=== PATIENT | female | born 1940 | race Caucasian/White ===

== ENCOUNTER → 2019-06-24 13:09 | Outpatient (CLI) | payer MEDICARE, OTHER, SELFPAY ==
--- NOTE | ~2019-06-24 | XR_ITS ---
XR knee RT min 4V DATE: 06/24/2019 13:37 INDICATION: Right knee pain for several years. No recent injury. TECHNIQUE: 4 views including sunrise, standing AP, PA and lateral views COMPARISON: None FINDINGS: There is prominent loss of height of the medial compartment joint space, with mild periarti cular spurring. There is periarticular spurring at the patellofemoral and lateral compartments. Moderate osteopenia. There is distention of the suprapatellar bursa consistent with moderate knee joint effusion. No fracture, dislocation, periosteal reaction or bone destruction is detected. 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 IMPRESSION: Tricompartment osteoarthritis, most severe at the medial compartmen t Moderate right knee joint effusion
== END ==
PROVIDERS: Visit Provider Internal Medicine
DX: M25.461 Effusion, right knee (principal); M17.11 Unilateral primary osteoarthritis, right knee
CPT/HCPCS: 73564

== ENCOUNTER → 2022-01-17 14:15 | Outpatient (CLI) | payer MEDICARE, OTHER, SELFPAY ==
--- NOTE | ~2022-01-17 | US_ITS ---
EXAMINATION: US pelvic complete DATE: 01/17/2022 14:45 INDICATION: Pelvic pain. Left lower quadrant mass. Comparison:No prior studies for comparison. TECHNIQUE: Multiple transabdominal and endovaginal sonographic images of the pelvis performed. FINDINGS: The uterus measures 4.8 x 2.9 x 3.8 cm. There is a coarse calcification measuring 1.7 cm in the uterus, likely calcified fibroid. The endometrial complex measures 3 mm. The ovaries are not visualized. There is no free fluid in the pelvis. There are no abnormal masses seen on either side. IMPRESSION: 1. Probable 1.7 cm calcified uterine fibroid. Reviewed, dictated and finalized at location A.
== END ==
PROVIDERS: PCP Family Medicine; Visit Provider Obstetrics & Gynecology Gynecology
DX: R10.2 Pelvic and perineal pain (principal)
CPT/HCPCS: 76856

== ENCOUNTER → 2022-02-10 09:24 | Outpatient (CLI) | payer MEDICARE, OTHER, SELFPAY ==
--- NOTE | ~2022-02-10 | DEXA_ITS ---
Bone Density Report Name: JUAN RAMON HERNANDEZ Age: 81 Sex: Female Ethnicity: White Date of : 1940 Indication: postmenopausal; screening for osteoporosis; height loss; Referring Provider: ABBE ECKERT Study: Bone densitometry was performed. Exam Date: February 10, 2022 Accession number: [id number] Bone Density: Region BMD T-score Z-score Classification AP Spine (L1-L4) 0.898 -1.4 1.3 Osteopenia Femoral Neck (Left) 0.633 -1.9 0.4 Osteopenia Total Hip (Left) 0.769 -1.4 0.7 Osteopenia Femoral Neck (Right) 0.559 -2.6 -0.3 Osteoporosis Total Hip (Right) 0.718 -1.8 0.3 Osteopenia Total Hip Mean 0.744 -1.6 0.5 Osteopenia World Health Organization criteria for BMD impression classify patients as: Normal (T-score at or above -1.0), Osteopenia (T-score between -1.0 and -2.5), or Osteoporosis (T-score at or below -2.5). 10-year Fracture Risk: FRAX not reported because: Some T-score for Spine Total or Hip Total or Femoral Neck at or below -2.5 Clinical Information Provided by Patient: Has used the following medications: Vitamin D, Calcium Patient maximum height was 65 Menopause Age: 49 No regular weight bearing exercise Drinks caffeinated beverages Onset of menses at age 12 Number of children 2 Impression: The patient has osteoporosis, based on the Right Femoral Neck T-score. Discussion: INCREASED RISK OF FRACTURE. BONE DENSITY IS UNDESIRABLY LOW AT ONE OR MORE SKELETAL SITES, CONSISTENT WITH POSTMENOPAUSAL OSTEOPOROSIS. This patient's lowest T-score meets the World Health Organization's (WHO) criteria for osteoporosis at one or more sites (T-score -2.5 or below). In untreated patients, the risk of osteoporotic fracture increases approximately two-fold for each 1.0 SD decrease in T-score. Low bone density is not the only risk factor for fracture; also consider factors such as patient's age, frailty or poor health, risk of falling, risk of injury, previous osteoporotic fracture, family history of osteoporosis, cigarette smoking, low body weight, etc. Not everyone with low bone mineral density has osteoporosis; osteomalacia and other metabolic bone disorders should also be considered. Patients who have osteoporosis should be evaluated for specific diseases and conditions (secondary causes) that may cause or contribute to bone loss. The [place] Association of Clinical Endocrinologists (AACE) and National Osteoporosis Foundation (NOF) recommend pharmacologic intervention for all postmenopausal women whose T-score is in this range. The patient should follow a healthful lifestyle (good nutrition with adequate calcium and vitamin D, and appropriate weight-bearing exercise). Follow-Up: Consider a repeat BMD and Vertebral Fracture Assessment (VFA) exam in 2 years or sooner if medically necessary, to reassess t
== END ==
PROVIDERS: PCP Family Medicine; Visit Provider Obstetrics & Gynecology Gynecology
DX: Z78.0 Asymptomatic menopausal state (principal); M85.88 Other specified disorders of bone density and structure, other site; M85.852 Other specified disorders of bone density and structure, left thigh; M85.851 Other specified disorders of bone density and structure, right thigh; M81.0 Age-related osteoporosis without current pathological fracture
CPT/HCPCS: 77080

== ENCOUNTER 2022-09-19 13:33 | Outpatient (CLI) | payer MEDICARE, OTHER, SELFPAY ==
[2022-09-19 17:08] LABS: Cholesterol 149 mg/dL (0-200); HDL Direct 76 mg/dL; Triglycerides 66 mg/dL (<150)
[2022-09-19 17:20] LABS: LDL Cholesterol Direct 63 mg/dL
== END 2022-09-19 13:34 | disposition home or self-care (01) ==
LOC: ANHGOSHLAB 13:34
PROVIDERS: PCP Family Medicine; Visit Provider Family Medicine
DX: E78.5 Hyperlipidemia, unspecified (principal)
CPT/HCPCS: 36415; 80061

== ENCOUNTER 2024-04-17 13:17 | Outpatient (CLI) | payer MEDICARE, OTHER, SELFPAY ==
--- NOTE | ~2024-04-17 | DEXA_ITS ---
Bone Density Report Name: JUAN RAMON HERNANDEZ Age: 83 Sex: Female Ethnicity: White Date of : 1940 Indication: postmenopausal; screening for osteoporosis; parental hip fracture; height loss; Referring Provider: ABBE ECKERT Study: Bone densitometry was performed. Exam Date: April 17, 2024 Accession number: [id number] Bone Density: Region BMD T-score Z-score Classification AP Spine(L1-L4) 0.996 -0.5 2.3 Normal Femoral Neck (Left) 0.612 -2.1 0.3 Osteopenia Total Hip (Left) 0.811 -1.1 1.1 Osteopenia Femoral Neck (Right) 0.530 -2.9 -0.4 Osteoporosis Total Hip (Right) 0.752 -1.6 0.7 Osteopenia Total Hip Mean 0.781 -1.4 0.9 Osteopenia World Health Organization criteria for BMD impression classify patients as: Normal (T-score at or above -1.0), Osteopenia (T-score between -1.0 and -2.5), or Osteoporosis (T-score at or below -2.5). 10-year Fracture Risk: FRAX not reported because: Some T-score for Spine Total or Hip Total or Femoral Neck at or below -2.5 Clinical Information Provided by Patient: Parent has had a hip fracture Has used the following medications: Boniva (i.e. ibandronate), Vitamin D, Calcium Patient maximum height was 65 No regular weight bearing exercise Drinks caffeinated beverages Onset of menses at age 13 Number of children 2 Impression: The patient has osteoporosis, based on the Right Femoral Neck T-score. The patient has risk factors, including: parental hip fracture. Discussion: INCREASED RISK OF FRACTURE. BONE DENSITY IS UNDESIRABLY LOW AT ONE OR MORE SKELETAL SITES, CONSISTENT WITH POSTMENOPAUSAL OSTEOPOROSIS. This patient's lowest T-score meets the World Health Organization's (WHO) criteria for osteoporosis at one or more sites (T-score -2.5 or below). In untreated patients, the risk of osteoporotic fracture increases approximately two-fold for each 1.0 SD decrease in T-score. Low bone density is not the only risk factor for fracture; also consider factors such as patient's age, frailty or poor health, risk of falling, risk of injury, previous osteoporotic fracture, family history of osteoporosis, cigarette smoking, low body weight, etc. Not everyone with low bone mineral density has osteoporosis; osteomalacia and other metabolic bone disorders should also be considered. Patients who have osteoporosis should be evaluated for specific diseases and conditions (secondary causes) that may cause or contribute to bone loss. The [place] Association of Clinical Endocrinologists (AACE) and National Osteoporosis Foundation (NOF) recommend pharmacologic intervention for all postmenopausal women whose T-score is in this range. The patient should follow a healthful lifestyle (good nutrition with adequate calcium and vitamin D, and appropriate weight-bearing exercise). Follow-Up: Consider a repeat BMD and Vertebral Fracture Assessment (VFA) exam in 2 years or sooner if medically necessary, to reassess this patient's status. Reported by: SHAKEEL on 04/17/2024 1:59:00 PM. Reviewed, dictated and finalized at location A. JULIANA
== END 2024-04-17 13:18 | disposition home or self-care (01) ==
PROVIDERS: PCP Family Medicine; Visit Provider Obstetrics & Gynecology Gynecology
DX: Z78.0 Asymptomatic menopausal state (principal); M81.0 Age-related osteoporosis without current pathological fracture; M85.851 Other specified disorders of bone density and structure, right thigh
CPT/HCPCS: 77080

== ENCOUNTER 2024-04-17 14:32 | Outpatient (NON) | payer MEDICARE, OTHER, SELFPAY | END 2024-04-17 14:33 | disposition home or self-care (01) | LOC: ANHGOSHLAB 14:33 | PROVIDERS: PCP Family Medicine; Visit Provider Family Medicine | DX: R30.0 Dysuria (principal) | CPT/HCPCS: 87086 ==

== ENCOUNTER 2024-06-11 08:46 | Outpatient (CLI) | payer MEDICARE, OTHER, SELFPAY ==
--- OUTSIDE RECORDS SUMMARY | 2024-06-11 09:09 | XMS_ITS | Continuity of Care Document ---
Author Name [facility] Organization [facility] Care Team Providers Care Home Health Travel Pt Name Role Phone [facility] Unavailable Unavailable Medications Combined list of outpatient medications from Department of Defense and Veterans Affairs facilities.Medications provided include 1) outpatient medications from the last 15 months, and 2) patient-reported medications. Medication Details Route Status Patient Instructions Prescription Expires Prescription Number Last Dispense Date Ordering Provider Order Date Order Qty Source AMLODIPINE BESYLATE (AMLODIPINE BESYLATE), 5 MG, TABLET, ORAL, EXELAN PHARMACE, 1000 ea. BOTTLE Active [id number] 4 2023 90 Pharmac y Data Transac tion Service Facilit y AMLODIPINE BESYLATE (AMLODIPINE BESYLATE), 5 MG, TABLET, ORAL, EXELAN PHARMACE, 1000 ea. BOTTLE Active [id number] 4 2023 90 Pharmac y Data Transac tion Service Facilit y ATORVASTATI N CALCIUM (atorvastat in calcium), 20 MG, TABLET, ORAL, ROE PHARMACEU, 500 ea. BOTTLE Active [id number] 4 2023 90 Pharmac y Data Transac tion Service Facilit y LISINOPRIL (lisinopril ), 10 MG, TABLET, ORAL, EXELAN PHARMACE, 1000 ea. BOTTLE Active [id number] 4 2023 90 Pharmac y Data Transac tion Service Facilit y LISINOPRIL (lisinopril ), 10 MG, TABLET, ORAL, EXELAN PHARMACE, 1000 ea. BOTTLE Active [id number] 4 2023 90 Pharmac y Data Transac tion Service Facilit y METHYLPREDN ISOLONE (methylpred nisolone), 4 MG, TAB DS PK, ORAL, Propers, 21 ea. DOSE-PACK Active [id number] 4 2023 21 Pharmac y Data Transac tion Service Facilit y PANTOPRAZOL E SODIUM (pantoprazo le sodium), 20 MG, TABLET DR, EVI, [employer] 90 ea. BOTTLE Active [id number] 4 2023 180 Pharmac y Data Transac tion Service Facilit y PANTOPRAZOL E SODIUM (pantoprazo le sodium), 20 MG, TABLET , ORAL, [employer] 90 ea. BOTTLE Active [id number] 4 2023 180 Pharmac y Data Transac tion Service Facilit y Immunizations Combined list of available immunizations from the Department of Defense and Veterans Affairs facilities. Immunization Series Date Given Administered By Site Reaction Lot Number CVX Code Drug Analytic Programmer Status Comments Source Hep B, adult 2021 ALUL, () Not Given Hep B, adult DoD Hep B, adult 2021 ALUL, () Not Given Hep B, adult DoD Social History Combined list of available smoking, tobacco, and other social history from Department of Defense and Veterans Affairs facilities. Social History Type Response Date Comment Sour e This section is an empty social history section. DoD
--- OUTSIDE RECORDS SUMMARY | 2024-06-11 09:09 | XMS_ITS | Clinical Summary ---
Author Organization [place] [id number] [facility] Address [address] [place] [address] Care Team Providers Care Seed Service Advisor Name Role Phone Paola Banks MD Unavailable [phone] Leanne Espinosa MD Primary Care Provider Allergies No known active allergies Medications pantoprazole (PROTONIX) 40 mg EC tabletIndications :Treatment of Non-Bleeding Gastric Disorder Take 1 tablet (40 mg total) by mouth web site administrator before breakfast 9 Active calcium carbonate (CALCIUM 600 ORAL)Indications: supplement Take 1 tablet by mouth web site administrator before breakfast Bid Active vitamin E 400 unit capsuleIndication s:supplement Take 1 capsule (400 Units total) by mouth web site administrator before breakfast Active ascorbic acid (VITAMIN C) 500 mg tablet,chewableIn dications:supplem ent Take 1 tablet/chew tab (500 mg total) by mouth web site administrator before breakfast qd Active cholecalciferol, vitamin D3, (VITAMIN D3 ORAL)Indications: supplement Take 1 tablet by mouth web site administrator before breakfast 1000mg bid Active vit A/vit C/vit E/zinc/copper (ICAPS AREDS ORAL)Indications: eye vitamin Take 1 tablet/capsule by mouth 2 (two) times a day Unsure med dosage bid Active multivitamin capsuleIndication s:Vitamin Deficiency Prevention Take 1 capsule by mouth web site administrator before breakfast Active flaxseed oil 1,000 mg capsuleIndication s:supplement Take 1 capsule (1,000 mg total) by mouth web site administrator before breakfast qd Active gluc/chondr-msm 7/C/miguel/boron (GLUCOSAMINE-SHELDON , LIO, ORAL)Indications: supplement Take 1 tablet by mouth web site administrator before breakfast 1500mg/1200mg every day Active LUTEIN ORALIndications:s upplement Take 1 capsule by mouth nightly Unsure med dosage every day Active MAGNESIUM ORALIndications:s upplement Take 1 tablet by mouth nightly Unsure med dosage every day Active polyethylene glycol (MIRALAX) 17 gram/dose powderIndications :constipation Take 17 g by mouth nightly Active lisinopriL (PRINIVIL,ZESTRIL ) 10 mg tabletIndications :hypertension Take 1 tablet (10 mg total) by mouth web site administrator before breakfast 2 Active ibandronate (BONIVA) 150 mg tabletIndications :Post-Menopausal Osteoporosis Prevention,Sunday of each month Take 1 tablet (150 mg total) by mouth every 30 (thirty) days 3 Active atorvastatin (LIPITOR) 20 mg tabletIndications :hyperlipidemia Take 1 tablet (20 mg total) by mouth nightly 4 Active amLODIPine (NORVASC) 5 mg tabletIndications :hypertension Take 1 tablet (5 mg total) by mouth web site administrator before breakfast 4 Active cyanocobalamin/fo lic acid (vitamin C77-xglrz acid) 500-400 mcg tabletIndications :Vitamin Deficiency Prevention Take 1 tablet/capsule by mouth 4 (four) times a week Active acetaminophen (TYLENOL) 500 mg tablet Take 2 tablets (1,000 mg total) by mouth every 6 (six) hours as needed for pain 30 tablet 4 Active oxyCODONE (ROXICODONE) 5 mg immediate release tabletIndications :Pain Take 1 tablet (5 mg total) by mouth every 4 (four) hours as needed for pain 2 tablet 4 Active Active Problems Problem Noted Date Diagnosed Date Non-recurrent unilateral ing uinal hernia without obstruction or gangrene 09/21/2023 Encounters Date Type Department Care Team Description 05/29/2024 11:02 AM TAPE RECORDER REPAIRER - 05/29/2024 11:59 PM TAPE RECORDER REPAIRER Hospital Encounter [facility] [address] [id number] Screening mammogram, encounter for Discharge Disposition: Discharge to home or self care from Last 3 Months Immunizations Immunization Administration Dates Next Due Hep B Vaccine 01/14/2021,08/16/2020,07/15/2020 Pfizer SARS-CoV-2 Monovalent Vaccination (12+ Yrs) PURPLE 06/29/2020,06/08/2020 Surgical History Surgery Date Site/Laterality Comments PANCREATICODUODENECTOMY 04/09/2007 - 04/08/2008 CHOLECYSTECTOMY 04/09/1994 - 04/08/1995 APPENDECTOMY 04/09/1981 - 04/08/1982 HIATAL HERNIA REPAIR 04/09/2009 - 04/08/2010 SALIVARY GLAND SURGERY neck/unknown date ARM SURGERY teenager TUBAL LIGATION COLONOSCOPY REPLACEMENT UNICONDYLAR JOINT KNEE Right Medical History Medical History Date Comments Benign pancreatic tumor Hypertension Hyperlipidemia GERD (gastroesophageal reflux disease) Inguinal hernia Family History Medical History Relation Name Comments Heart attack Brother Non-Hodgkin's Lymphoma Brother Cancer Father No Known Problems Mother Anesthesia problems Neg Hx Relation Name Status Comments Brother [place] age 60s Father Mother Social History Tobacco Use Types Packs/Day Years Used Date Smoking Tobacco: Former Smokeless Tobacco: Never Tobacco Cessation:Counseling Given: Not Answered AUDIT-C Answer Date Recorded Q1: How often do you have a drink containing alc ohol? Monthly or less 10/10/2023 Q2: How many drinks containi ng alcohol do you have on a typical day when you are drinking? 1 or 2 10/10/2023 Q3: How often do you have si x or more drinks on one occasion? Never 10/10/2023 Personal Safety Answer Date Recorded Have you ever been in or are you currently in a harmful physical or emotional relationship or is someone making you feel afraid or unsafe? Denies 10/10/2023 Comments No Sex and Gender Information Value Date Recorded Sex Assigned at Not on file Legal Sex Female 2:59 AM TAPE RECORDER REPAIRER Gender Identity Not on file Sexual Orientation Not on file Obstetrics History Last Filed Vital Signs Vital Sign Reading Time Taken Comments Blood Pressure 144/79 11/02/2023 1:32 PM CDT Pulse 80 11/02/2023 1:32 PM CDT Temperature 36.2 C (97.2 F) 11/02/2023 1:32 PM CDT Respiratory Rate 12 10/10/2023 1:40 PM CDT Oxygen Saturation 96% 11/02/2023 1:32 PM CDT Inhaled Oxygen Concentration - - Weight 69.4 kg (153 lb) 11/02/2023 1:32 PM CDT Height 160 cm (5' 3 ) 11/02/2023 1:32 PM CDT Body Mass Index 27.1 11/02/2023 1:32 PM CDT Plan of Treatment Health Maintenance Due Date Last Done Comments Depression Screening 1940 Osteoporosis Screening-Bone Density Scan 1940 DTaP/Tdap/Td Vaccine (1 - Tdap) 1952 Pneumococcal vaccine 65+ (1 of 1 - PCV) 07/31/1991 Zoster Vaccine (1 of 2) 07/31/1991 Well Visit 65+ 2006 Covid-19 Vaccine ( season) 2023, 06/08/2020 Influenza Vaccine (#1) 2023 01/29/2020 Fall Risk Assessment 10/09/2024 10/10/2023 Hepatitis B Screening Completed 01/14/2021 , 08/16/2020, 07/15/2020 Medical Devices Implanted Type Area Band Teacher Device Identifier Shelf Expiration Date Model / Serial / Lot [employer] Surgery Ultrapro Advanced 15x7.6cm Partial Absorbable Lightweight [id number] - Sna - [id number] Implanted:Qty: 1 on 10/10/2023 by Crystal Raza MD at [facility] Mesh Left: Groin [employer] Surgery [id number] 04/08/2025 [id number] / NA / [id number] Procedures Procedure Name Priority Date/Time Associated Diagnosis Comments SCREENING MAMMOGRAM BILATERAL W YASEMIN Schedule Routine, Read Routine (OP Routine) 05/29/2024 11:16 AM TAPE RECORDER REPAIRER Screening mammogram, encounter for from Last 3 Months Results * Screening Mammogram Bilateral W Yasemin (05/29/2024 11:16 AM TAPE RECORDER REPAIRER) Anatomical Region Laterality Modality Breast Bilateral Mammography Narrative 05/29/2024 2:06 PM TAPE RECORDER REPAIRER Mammogram Technique: Bilateral Digital Breast Tomosynthesis, Bilateral C-view 2D Screening mammogram. Views obtained: bilateral craniocaudal and bilateral mediolateral oblique. Computer Aided Detection was performed. Mammogram Findings: The present examination has been compared to prior imaging studies performed at [facility] on 06/12/2023, and at [facility] on 05/26/2022 and 05/28/2023. There are scattered areas of fibroglandular density. There is no suspicious abnormality in either breast. Impression: There is no mammographic evidence of malignancy. As this patient is over 80 years of age, further mammographic screening can be obtained as clinically indicated. OVERALL FINAL ASSESSMENT: BI-RADS CATEGORY 1: Negative. Procedure Note China Sharma MD - 05/29/2024 Mammogram Technique: Bilateral Digital Breast Tomosynthesis, Bilateral C-view 2D Screening mammogram. Views obtained: bilateral craniocaudal and bilateral mediolateral oblique. Computer Aided Detection was performed. Mammogram Findings: The present examination has been compared to prior imaging studies performed at [facility] on 06/12/2023, and at [facility] on 05/26/2022 and 05/28/2023. There are scattered areas of fibroglandular density. There is no suspicious abnormality in either breast. Impression: There is no mammographic evidence of malignancy. As this patient is over 80 years of age, further mammographic screeningcan be obtained as clinically indicated. OVERALL FINAL ASSESSMENT: BI-RADS CATEGORY 1: Negative. us Self Screening Mammogram IMG MAMMO PROCEDURES Fi nal Result from Last 3 Months Insurance MEDICARE FOR LIFE MEDICARE FOR LIFE MEDICARE FOR LIFE Care Teams Seed Service Advisor Relationship Specialty Start Date End Date Leanne Espinosa MD [address] [facility] [address] [address] PCP - General Family Practice 05/05/24 Paola Banks MD [address] [place] [address] Referring Physician Gastroenterology 10/04/23
--- OUTSIDE RECORDS SUMMARY | 2024-06-11 09:09 | XMS_ITS | Referral Summary ---
Author Organization [place] [id number] [facility] Address [address] [place] [address] Care Team Providers Care Customer Relations Specialist Name Role Phone Paola Banks MD Unavailable [phone] Leanne Espinosa MD Primary Care Provider Encounters Date Type Department Care Team Description 05/29/2024 11:02 AM LUMP RECEIVER - 05/29/2024 11:59 PM [facility] Hospital Encounter [facility] [address] [facility] [address] [place] [address] Screening mammogram, encounter for Discharge Disposition: Discharge to home or self care from Last 3 Months Allergies No known active allergies Medications pantoprazole DR (PROTONIX) 40 mg EC tabletIndications :Treatment of Non-Bleeding Gastric Disorder Take 1 tablet (40 mg total) by mouth casting trucker before breakfast 9 Active calcium carbonate (CALCIUM 600 ORAL)Indications: supplement Take 1 tablet by mouth casting trucker before breakfast Bid Active vitamin E 400 unit capsuleIndication s:supplement Take 1 capsule (400 Units total) by mouth casting trucker before breakfast Active ascorbic acid (VITAMIN C) 500 mg tablet,chewableIn dications:supplem ent Take 1 tablet/chew tab (500 mg total) by mouth casting trucker before breakfast qd Active cholecalciferol, vitamin D3, (VITAMIN D3 ORAL)Indications: supplement Take 1 tablet by mouth casting trucker before breakfast 1000mg bid Active vit A/vit C/vit E/zinc/copper (ICAPS AREDS ORAL)Indications: eye vitamin Take 1 tablet/capsule by mouth 2 (two) times a day Unsure med dosage bid Active multivitamin capsuleIndication s:Vitamin Deficiency Prevention Take 1 capsule by mouth casting trucker before breakfast Active flaxseed oil 1,000 mg capsuleIndication s:supplement Take 1 capsule (1,000 mg total) by mouth casting trucker before breakfast qd Active gluc/chondr-msm 7/C/miguel/boron (GLUCOSAMINE-SHELDON , BOSWELLIA, ORAL)Indications: supplement Take 1 tablet by mouth casting trucker before breakfast 1500mg/1200mg every day Active LUTEIN [...] 1 tablet (10 mg total) by mouth casting trucker before breakfast 2 Active ibandronate (BONIVA) 150 mg tabletIndications :Post-Menopausal Osteoporosis Prevention,Sunday of each month Take 1 tablet (150 mg total) by mouth every 30 (thirty) days 3 Active atorvastatin (LIPITOR) 20 mg tabletIndications :hyperlipidemia Take 1 tablet (20 mg total) by mouth nightly 4 Active amLODIPine (NORVASC) 5 mg tabletIndications :hypertension Take 1 tablet (5 mg total) by mouth casting trucker before breakfast 4 Active cyanocobalamin/fo lic acid (vitamin C99-lmhoc acid) 500-400 mcg tabletIndications :Vitamin Deficiency Prevention [...] uinal hernia without obstruction or gangrene 09/21/2023 Immunizations Immunization Administration Dates Next Due Hep B Vaccine 01/14/2021,08/16/2020,07/15/2020 Pfizer SARS-CoV-2 Monovalent Vaccination (12+ Yrs) PURPLE 06/29/2020,06/08/2020 Social History Tobacco Use Types Packs/Day Years [...] on file Legal Sex Female 2:59 AM LUMP RECEIVER Gender Identity Not on file Sexual Orientation Not on file Last Filed Vital Signs Vital Sign Reading [...] 11/02/2023 1:32 PM CDT Plan of Treatment Not on file Medical Devices Implanted Type Area Poultry Tender Device Identifier Shelf Expiration Date Model / Serial / Lot Ethicon Endo Surgery Ultrapro Advanced 15x7.6cm Partial Absorbable Lightweight [id number] - Sna - [id number] Implanted:Qty: 1 on 10/10/2023 by Crystal Raza MD at [facility] Mesh Left: Groin Ethicon Endo Surgery [id number] 04/08/2025 [id number] / NA / [id number] Procedures Procedure Name Priority Date/Time Associated Diagnosis Comments SCREENING MAMMOGRAM BILATERAL W YASEMIN Schedule Routine, Read Routine (OP Routine) 05/29/2024 11:16 AM LUMP RECEIVER Screening mammogram, encounter for from Last 3 Months Results * Screening Mammogram Bilateral W Yasemin (05/29/2024 11:16 AM LUMP RECEIVER) Anatomical Region Laterality Modality Breast Bilateral Mammography Narrative 05/29/2024 2:06 PM LUMP RECEIVER Mammogram Technique: Bilateral Digital Breast Tomosynthesis, Bilateral C-view 2D Screening mammogram. Views obtained: bilateral craniocaudal and bilateral mediolateral oblique. Computer Aided Detection was performed. Mammogram Findings: The present examination has been compared to prior imaging studies performed at [facility] on 06/12/2023, and at [facility] on 05/26/2022 and 05/28/2023. There are scattered [...] compared to prior imaging studies performed at [facility] on 06/12/2023, and at [facility] on 05/26/2022 and 05/28/2023. There are scattered [...] Result from Last 3 Months Insurance MEDICARE [employer] MEDICARE [employer] FOR LIFE MEDICARE [facility] Address: [address] [address] [place] [address] FOR LIFE Care Teams Customer Relations Specialist Relationship Specialty Start Date End Date Leanne Espinosa MD [address] [facility] [address] [address] PCP - General Family Practice 05/05/24 Paola Banks MD [address] [place] [address] Referring Physician Gastroenterology 10/04/23
[2024-06-11 13:00] LABS: Alanine Aminotransferase 60 U/L (6-35); Albumin Level 4.4 g/dL (3.5-5.1); Alkaline Phosphatase 80 U/L (38-126); Anion Gap 9 mmol/L (4-12); Aspartate Amino Transferase 78 U/L (14-36); Bilirubin,Total 0.7 mg/dL (0.2-1.3); Blood Urea Nitrogen 14 mg/dL (7-17); Calcium 9.6 mg/dL (8.4-10.2); Carbon Dioxide 28 mmol/L (22-30); Chloride 103 mmol/L (98-107); Cholesterol 159 mg/dL (0-200); Estimated Glomerular Filt Rate > 60; Glucose 96 mg/dL (65-110); HDL Direct 95 mg/dL; Potassium 4.5 mmol/L (3.4-5.0); Sodium 140 mmol/L (137-145); Triglycerides 54 mg/dL (<150)
[2024-06-11 13:03] LABS: Basophils Absolute Auto 0.1 K/mm3 (0.0-0.1); Basophils Percent Auto 1.2 % (0.2-1.2); Eosinophils Absolute Auto 0.5 K/mm3 (0-0.3); Eosinophils Percent Auto 9.1 % (0-4.4); Hematocrit 41.7 % (37.0-47.0); Hemoglobin 13.3 g/dL (12.0-15.0); Immature Granulocyte Absolute 0.02 K/mm3 (0.00-0.031); Immature Granulocyte Percent A 0.4 % (0-0.5); Lymphocytes Absolute Auto 1.42 K/mm3 (0.9-3.2); Mean Corpuscular HGB Conc 31.9 g/dl (32-36); Mean Corpuscular Hemoglobin 33.3 pg (26-34); Mean Corpuscular Volume 104.3 fl (80-100); Monocytes Absolute Auto 0.5 K/mm3 (0.1-0.6); Monocytes Percent Auto 9.3 % (2.6-8.5); Neutrophils Absolute Auto 2.7 K/mm3 (1.3-6.7); Platelet Count Result 197 k/mm3 (150-375); White Blood Count 5.1 K/mm3 (4.5-10.0)
[2024-06-11 13:13] LABS: LDL Cholesterol Direct 51 mg/dL
[2024-06-11 14:20] LABS: Hemoglobin A1C 5.3 % (<5.7); Vitamin D 25 Hydroxy 73.6 ng/mL
== END 2024-06-11 08:47 | disposition home or self-care (01) ==
PROVIDERS: PCP Family Medicine; Visit Provider Family Medicine
DX: R73.9 Hyperglycemia, unspecified (principal); E55.9 Vitamin D deficiency, unspecified; E53.8 Deficiency of other specified B group vitamins; I10 Essential (primary) hypertension; E78.5 Hyperlipidemia, unspecified
CPT/HCPCS: 36415; 80053; 80061; 82306; 82607; 83036; 84443; 85025

== ENCOUNTER 2024-07-23 12:32 | Outpatient (CLI) | payer MEDICARE, OTHER, SELFPAY ==
--- OUTSIDE RECORDS SUMMARY | 2024-07-23 13:35 | XMS_ITS | Encounter Summary ---
Author Organization [facility] Address [address] [place] [address] Phone Care Team Providers Care Community Living Specialist Name Role Phone Paola Banks MD Unavailable [phone] Leanne Espinosa MD Primary Care Provider Encounter Details Date Type Department Care Team (Late st Contact Info) Description 07/15/2024 Results Follow-Up [facility] Gastroenterology [address] [facility] Medicine 12th [place] [address] [place] [id number] Paola Banks MD [address] [place] [address] Social History Tobacco Use Types Packs/Day Years Used Date Smoking Tobacco: Former Smokeless Tobacco: Never AUDIT-C Answer Date Recorded Q1: How often [...] on file Legal Sex Female 2:59 AM TOP CLEANER Gender Identity Not on file Sexual Orientation Not on file documented as of this encounter Plan of Treatment Not on file documented as of this encounter Visit Diagnoses Not on filedocumented in this encounter Care Teams Community Living Specialist Relationship Specialty Start Date End Date Leanne Espinosa MD [address] [facility] [address] [place] [address] [place] [address] PCP - General Family Practice 05/05/24 Paola Banks MD [address] [place] [address] Referring Physician Gastroenterology 10/04/23 documented as of this encounter
--- OUTSIDE RECORDS SUMMARY | 2024-07-23 13:35 | XMS_ITS | Clinical Summary ---
Author Organization [place] [address] [facility] Address [address] [place] [address] Care Team Providers Care Director Of Strategic Programs Name Role Phone Paola Banks MD Unavailable [phone]- [phone] Leanne Espinosa MD Primary Care Provider Allergies No known active allergies Medications pantoprazole (PROTONIX) 40 mg EC tabletIndications :Treatment of Non-Bleeding Gastric Disorder Take 1 tablet (40 mg total) by mouth shrub planter before breakfast 9 Active calcium carbonate (CALCIUM 600 ORAL)Indications: supplement Take 1 tablet by mouth shrub planter before breakfast Bid Active vitamin E 400 unit capsuleIndication s:supplement Take 1 capsule (400 Units total) by mouth shrub planter before breakfast Active ascorbic acid (VITAMIN C) 500 mg tablet,chewableIn dications:supplem ent Take 1 tablet/chew tab (500 mg total) by mouth shrub planter before breakfast qd Active cholecalciferol, vitamin D3, (VITAMIN D3 ORAL)Indications: supplement Take 1 tablet by mouth shrub planter before breakfast 1000mg bid Active vit A/vit C/vit E/zinc/copper (ICAPS AREDS ORAL)Indications: eye vitamin Take 1 tablet/capsule by mouth 2 (two) times a day Unsure med dosage bid Active multivitamin capsuleIndication s:Vitamin Deficiency Prevention Take 1 capsule by mouth shrub planter before breakfast Active flaxseed oil 1,000 mg capsuleIndication s:supplement Take 1 capsule (1,000 mg total) by mouth shrub planter before breakfast qd Active gluc/chondr-msm 7/C/miguel/boron (GLUCOSAMINE-SHELDON , LIO, ORAL)Indications: supplement Take 1 tablet by mouth shrub planter before breakfast 1500mg/1200mg every day Active LUTEIN [...] 1 tablet (10 mg total) by mouth shrub planter before breakfast 2 Active ibandronate (BONIVA) 150 mg tabletIndications :Post-Menopausal Osteoporosis Prevention,Sunday of each month Take 1 tablet (150 mg total) by mouth every 30 (thirty) days 3 Active atorvastatin (LIPITOR) 20 mg tabletIndications :hyperlipidemia Take 1 tablet (20 mg total) by mouth nightly 4 Active amLODIPine (NORVASC) 5 mg tabletIndications :hypertension Take 1 tablet (5 mg total) by mouth shrub planter before breakfast 4 Active cyanocobalamin/fo lic acid (vitamin O50-kndwo acid) 500-400 mcg tabletIndications :Vitamin Deficiency Prevention [...] needed for pain 2 tablet 4 Active denosumab (PROLIA) 60 mg/mL syringe Inject under the skin once Active Active Problems Problem Noted Date Diagnosed Date Non-recurrent unilateral ing uinal hernia without obstruction or gangrene 09/21/2023 Encounters Date Type Department Care Team Description 07/15/2024 Results Follow-Up [facility] Gastroenterology [address] [facility] [address]th [place] [address] [place] [address] Paola Banks MD 07/10/2024 10:45 AM CDT Procedure visit [facility] Gastroenterology [address] [facility] [address]th [place] [address] [place] [address] Nonalcoholic steatohepatitis (BEAL) 07/10/2024 10:20 AM CDT Office Visit [facility] Gastroenterology [address] [facility] [address]th [place] [address] [place] [address] Paola Banks MD Nonalcoholic steatohepatitis (BEAL) (Primary Dx) 05/29/2024 11:02 AM COMPUTER LANGUAGE CODER - 05/29/2024 11:59 PM COMPUTER LANGUAGE CODER Hospital Encounter [facility] [address] [facility] [address] [place] [address] Screening mammogram, encounter for Discharge Disposition: Discharge [...] neck/unknown date ARM SURGERY teenager TUBAL LIGATION 1980s COLONOSCOPY REPLACEMENT UNICONDYLAR JOINT KNEE Right Medical History Medical History Date Comments Benign pancreatic tumor Hypertension Hyperlipidemia GERD (gastroesophageal reflux disease) Inguinal hernia Family History Medical History Relation Name Comments Heart attack Brother Non-Hodgkin's Lymphoma Brother Cancer Father No Known Problems Mother Anesthesia problems Neg Hx Relation Name Status Comments Brother [place] age 60s Father Mother Social History Tobacco [...] on file Legal Sex Female 2:59 AM COMPUTER LANGUAGE CODER Gender Identity Not on file Sexual Orientation Not on file Obstetrics History Last Filed Vital Signs Vital Sign Reading Time Taken Comments Blood Pressure 150/89 07/10/2024 10:15 AM CDT Pulse 68 07/10/2024 10:15 AM CDT Temperature 36.7 C (98 F) 07/10/2024 10:15 AM CDT Respiratory Rate 12 10/10/2023 1:40 PM CDT Oxygen Saturation 100% 07/10/2024 10:15 AM CDT Inhaled Oxygen Concentration - - Weight 68.5 kg (151 lb) 07/10/2024 10:15 AM CDT Height 160 cm (5' 3 ) 07/10/2024 10:15 AM CDT Body Mass Index 26.75 07/10/2024 10:15 AM CDT Plan of Treatment Health Maintenance Due Date Last Done Comments Depression Screening 1940 Osteoporosis Screening-Bone Density Scan 1941 DTaP/Tdap/Td Vaccine (1 - Tdap) 1952 Pneumococcal vaccine 65+ (1 of 1 - PCV) 07/31/1991 Zoster Vaccine (1 of 2) 07/31/1991 Well Visit 65+ 2006 Covid-19 Vaccine ( - season) 2023, 06/08/2020 Fall Risk Assessment 10/09/2024 10/10/2023 Influenza Vaccine (Season Ended) 2024 01/29/20 Hepatitis B Screening Completed 01/14/2021 , 08/16/2020, 07/15/2020 Medical Devices Implanted Type Area Horticultural Agent Device Identifier Shelf Expiration Date Model / Serial / Lot Ethicon Endo Surgery Ultrapro Advanced 15x7.6cm Partial Absorbable Lightweight [id number] - Sna - [id number] Implanted:Qty: 1 on 10/10/2023 by Crystal Raza MD at [facility] Mesh Left: Groin Ethicon Endo Surgery [id number] 04/08/2025 [id number] / NA / [id number] Procedures Procedure Name Priority Date/Time Associated Diagnosis Comments LIVER ELASTOGRAPHY W/O IMAGING W/I&R Routine 07/10/2024 11:46 AM CDT Nonalcoholic steatohepatitis (BEAL) SCREENING MAMMOGRAM BILATERAL W YASEMIN Schedule Routine, Read Routine (OP Routine) 05/29/2024 11:16 AM COMPUTER LANGUAGE CODER Screening mammogram, encounter for from Last 3 Months Results * Liver Elastography w/o Imaging W/I&R -[facility] (All Locations) (07/10/2024 11:46 AM CDT) Anatomical Region Laterality Modality Other Paola Banks MD GI PROCEDURE ORDERAB LES Final Result * Screening Mammogram Bilateral W Yasemin (05/29/2024 11:16 AM COMPUTER LANGUAGE CODER) Anatomical Region Laterality Modality Breast Bilateral Mammography Narrative 05/29/2024 2:06 PM COMPUTER LANGUAGE CODER Mammogram Technique: Bilateral Digital Breast Tomosynthesis, Bilateral C-view 2D Screening mammogram. Views obtained: bilateral craniocaudal and bilateral mediolateral oblique. Computer Aided Detection was performed. Mammogram Findings: The present examination has been compared to prior imaging studies performed at [facility] on 06/12/2023, and at [facility] on 05/26/2022 and 05/28/2023. There are [...] compared to prior imaging studies performed at [facility] on 06/12/2023, and at [facility] on 05/26/2022 and 05/28/2023. There are [...] Result from Last 3 Months Insurance MEDICARE HIGH MOBILITY MEDICARE FOR LIFE MEDICARE FOR LIFE Care Teams Director Of Strategic Programs Relationship Specialty Start Date End Date Leanne Espinosa MD [address] [facility] [address] [address] PCP - General Family Practice 05/05/24 Paola Banks MD [address] [place] [address] Referring Physician Gastroenterology 10/04/23
--- OUTSIDE RECORDS SUMMARY | 2024-07-23 13:35 | XMS_ITS | Referral Summary ---
Author Organization [place] [address] [facility] Address [address] [place] [address] Care Team Providers Care Miner Pick Name Role Phone Paola Banks MD Unavailable [phone] Leanne Espinosa MD Primary Care Provider Encounters Date Type Department Care Team Description 07/15/2024 Results Follow-Up [facility] Gastroenterology [facility] [address] [place] [address] [place] [address] Paola Banks MD 07/10/2024 10:45 AM CDT Procedure visit [facility] Gastroenterology [address] [place] [address] [place] [address] [place] [address] Nonalcoholic steatohepatitis (BEAL) 07/10/2024 10:20 AM CDT Office Visit [facility] Gastroenterology [address] [place] [address] [place] [address] [place] [address] Paola Banks MD Nonalcoholic steatohepatitis (BEAL) (Primary Dx) 05/29/2024 11:02 AM TRANSIT OPERATOR - 05/29/2024 11:59 PM TRANSIT OPERATOR Hospital Encounter [facility] [address] [facility] [address] [place] [address] Screening mammogram, encounter for Discharge Disposition: Discharge to home or self care from Last 3 Months Allergies No known active allergies Medications pantoprazole DR (PROTONIX) 40 mg EC tabletIndications :Treatment of Non-Bleeding Gastric Disorder Take 1 tablet (40 mg total) by mouth director payer before breakfast 9 Active calcium carbonate (CALCIUM 600 ORAL)Indications: supplement Take 1 tablet by mouth director payer before breakfast Bid Active vitamin E 400 unit capsuleIndication s:supplement Take 1 capsule (400 Units total) by mouth director payer before breakfast Active ascorbic acid (VITAMIN C) 500 mg tablet,chewableIn dications:supplem ent Take 1 tablet/chew tab (500 mg total) by mouth director payer before breakfast qd Active cholecalciferol, vitamin D3, (VITAMIN D3 ORAL)Indications: supplement Take 1 tablet by mouth director payer before breakfast 1000mg bid Active vit A/vit C/vit E/zinc/copper (ICAPS AREDS ORAL)Indications: eye vitamin Take 1 tablet/capsule by mouth 2 (two) times a day Unsure med dosage bid Active multivitamin capsuleIndication s:Vitamin Deficiency Prevention Take 1 capsule by mouth director payer before breakfast Active flaxseed oil 1,000 mg capsuleIndication s:supplement Take 1 capsule (1,000 mg total) by mouth director payer before breakfast qd Active gluc/chondr-msm 7/C/miguel/boron (GLUCOSAMINE-SHELDON , BOSWELLIA, ORAL)Indications: supplement Take 1 tablet by mouth director payer before breakfast 1500mg/1200mg every day Active LUTEIN [...] 1 tablet (10 mg total) by mouth director payer before breakfast 2 Active ibandronate (BONIVA) 150 mg tabletIndications :Post-Menopausal Osteoporosis Prevention,Sunday of each month Take 1 tablet (150 mg total) by mouth every 30 (thirty) days 3 Active atorvastatin (LIPITOR) 20 mg tabletIndications :hyperlipidemia Take 1 tablet (20 mg total) by mouth nightly 4 Active amLODIPine (NORVASC) 5 mg tabletIndications :hypertension Take 1 tablet (5 mg total) by mouth director payer before breakfast 4 Active cyanocobalamin/fo lic acid (vitamin U20-zners acid) 500-400 mcg tabletIndications :Vitamin Deficiency Prevention [...] on file Legal Sex Female 2:59 AM TRANSIT OPERATOR Gender Identity Not on file Sexual Orientation [...] 07/10/2024 10:15 AM CDT Plan of Treatment Not on file Medical Devices Implanted Type Area Production Operations Engineer Device Identifier Shelf Expiration Date Model / Serial / Lot Ethicon Endo Surgery Ultrapro Advanced 15x7.6cm Partial Absorbable Lightweight [id number] - Sna - [id number] Implanted:Qty: 1 on 10/10/2023 by Crystal Raza MD at [facility] Medicine Mesh Left: Groin Ethicon Endo Surgery [id number] 04/08/2025 [id number] / NA / [id number] Procedures Procedure Name Priority Date/Time Associated Diagnosis Comments LIVER ELASTOGRAPHY W/O IMAGING W/I&R Routine 07/10/2024 11:46 AM CDT Nonalcoholic steatohepatitis (BEAL) SCREENING MAMMOGRAM BILATERAL W YASEMIN Schedule Routine, Read Routine (OP Routine) 05/29/2024 11:16 AM TRANSIT OPERATOR Screening mammogram, encounter for from Last 3 Months Results * Liver Elastography w/o Imaging W/I&R -[facility] (All Locations) (07/10/2024 11:46 AM CDT) Anatomical Region Laterality Modality Other us Paola Banks MD GI PROCEDURE ORDERAB LES Final Result * Screening Mammogram Bilateral W Yasemin (05/29/2024 11:16 AM TRANSIT OPERATOR) Anatomical Region Laterality Modality Breast Bilateral Mammography Narrative 05/29/2024 2:06 PM TRANSIT OPERATOR Mammogram Technique: Bilateral Digital Breast Tomosynthesis, Bilateral C-view 2D Screening mammogram. Views obtained: bilateral craniocaudal and bilateral mediolateral oblique. Computer Aided Detection was performed. Mammogram Findings: The present examination has been compared to prior imaging studies performed at [facility] on 06/12/2023, and at [facility] on 05/26/2022 and 05/28/2023. There are [...] prior imaging studies performed at [facility] on 06/12/2023, and at [facility] on 05/26/2022 and 05/28/2023. There are [...] FOR LIFE MEDICARE FOR LIFE Care Teams Miner Pick Relationship Specialty Start Date End Date Leanne Espinosa MD [address] [facility] [place] [address] [address] PCP - General Family Practice 05/05/24 Paola Banks MD [address] [place] [address] Referring Physician Gastroenterology 10/04/23
[2024-07-23 19:55] LABS: Basophils Percent Auto 0.7 % (0.2-1.2); Eosinophils Absolute Auto 0.6 K/mm3 (0-0.3); Eosinophils Percent Auto 10.5 % (0-4.4); Hematocrit 41.1 % (37.0-47.0); Hemoglobin 13.3 g/dL (12.0-15.0); Immature Granulocyte Absolute 0.01 K/mm3 (0.00-0.031); Immature Granulocyte Percent A 0.2 % (0-0.5); Lymphocytes Absolute Auto 1.48 K/mm3 (0.9-3.2); Lymphocytes Percent Auto 26.3 % (18.3-44.2); Mean Corpuscular HGB Conc 32.4 g/dl (32-36); Mean Corpuscular Hemoglobin 33.3 pg (26-34); Mean Platelet Volume 11.4 fl (7.4-10.4); Monocytes Absolute Auto 0.6 K/mm3 (0.1-0.6); Monocytes Percent Auto 11.4 % (2.6-8.5); Neutrophils Absolute Auto 2.9 K/mm3 (1.3-6.7); Neutrophils Percent Auto 50.9 % (45.5-73.1); Platelet Count Result 186 k/mm3 (150-375); Red Blood Count 3.99 M/mm3 (4.2-5.4); Red Cell Distribution Width 13.9 % (11.5-14.5); White Blood Count 5.6 K/mm3 (4.5-10.0)
[2024-07-23 20:29] LABS: Alanine Aminotransferase 69 U/L (6-35); Albumin Level 4.4 g/dL (3.5-5.1); Alkaline Phosphatase 76 U/L (38-126); Anion Gap 7 mmol/L (4-12); Aspartate Amino Transferase 64 U/L (14-36); Bilirubin,Total 0.7 mg/dL (0.2-1.3); Blood Urea Nitrogen 13 mg/dL (7-17); Calcium 9.1 mg/dL (8.4-10.2); Carbon Dioxide 28 mmol/L (22-30); Chloride 104 mmol/L (98-107); Estimated Glomerular Filt Rate > 60; Glucose 97 mg/dL (65-110); Potassium 5.2 mmol/L (3.4-5.0); Sodium 139 mmol/L (137-145)
== END 2024-07-23 12:33 | disposition home or self-care (01) ==
PROVIDERS: Internal Medicine Gastroenterology; PCP Family Medicine; Visit Provider Family Medicine
DX: K75.81 Nonalcoholic steatohepatitis (NASH) (principal)
CPT/HCPCS: 36415; 80053; 82248; 85025

== ENCOUNTER 2024-12-10 15:19 | Outpatient (CLI) | payer MEDICARE, OTHER, SELFPAY ==
--- OUTSIDE RECORDS SUMMARY | 2024-12-10 15:30 | XMS_ITS | Continuity of Care Document ---
Author Name [facility] Organization [facility] Care Team Providers Care Desulphurizer Operator Name Role Phone [facility] Unavailable Unavailable Medications Combined list of outpatient medications from Department of Defense and Veterans Affairs facilities.Medications provided include 1) outpatient medications from the last 15 months, and 2) patient-reported medications. Medication Details Route Status Patient Instructions Prescription Expires Prescription Number Last Dispense Date Ordering Provider Order Date Order Qty Source METHYLPREDN ISOLONE (methylpred nisolone), 4 MG, TAB DS PK, ORAL, peerTransfer, 21 ea. DOSE-PACK Active [id number] 2023 21 Pharmac y Data Transac tion Service Facilit y Immunizations Combined list of available immunizations from the Department of Defense and Veterans Affairs facilities. Immunization Series Date Given Administered By Site Reaction Lot Number CVX Code Drug Special Needs Tutor Status Comments Source Hep B, adult 2021 [...]
--- OUTSIDE RECORDS SUMMARY | 2024-12-10 16:47 | XMS_ITS | Clinical Summary ---
Author Organization [place] [id number] [facility] Address [address] [place] [address] Care Team Providers Care Cloud Infrastructure Architect Name Role Phone Paola Banks MD Unavailable [phone] Leanne Espinosa MD Primary Care Provider Allergies No known active allergies Medications pantoprazole (PROTONIX) 40 mg EC tabletIndications :Treatment of Non-Bleeding Gastric Disorder Take 1 tablet (40 mg total) by mouth lehr operator before breakfast 9 Active calcium carbonate (CALCIUM 600 ORAL)Indications: supplement Take 1 tablet by mouth lehr operator before breakfast Bid Active vitamin E 400 unit capsuleIndication s:supplement Take 1 capsule (400 Units total) by mouth lehr operator before breakfast Active ascorbic acid (VITAMIN C) 500 mg tablet,chewableIn dications:supplem ent Take 1 tablet/chew tab (500 mg total) by mouth lehr operator before breakfast qd Active cholecalciferol, vitamin D3, (VITAMIN D3 ORAL)Indications: supplement Take 1 tablet by mouth lehr operator before breakfast 1000mg bid Active vit A/vit C/vit E/zinc/copper (ICAPS AREDS ORAL)Indications: eye vitamin Take 1 tablet/capsule by mouth 2 (two) times a day Unsure med dosage bid Active multivitamin capsuleIndication s:Vitamin Deficiency Prevention Take 1 capsule by mouth lehr operator before breakfast Active flaxseed oil 1,000 mg capsuleIndication s:supplement Take 1 capsule (1,000 mg total) by mouth lehr operator before breakfast qd Active gluc/chondr-msm 7/C/miguel/boron (GLUCOSAMINE-SHELDON , LIO, ORAL)Indications: supplement Take 1 tablet by mouth lehr operator before breakfast 1500mg/1200mg every day Active LUTEIN [...] 1 tablet (10 mg total) by mouth lehr operator before breakfast 2 Active ibandronate (BONIVA) 150 mg tabletIndications :Post-Menopausal Osteoporosis Prevention,Sunday of each month Take 1 tablet (150 mg total) by mouth every 30 (thirty) days 3 Active atorvastatin (LIPITOR) 20 mg tabletIndications :hyperlipidemia Take 1 tablet (20 mg total) by mouth nightly 4 Active amLODIPine (NORVASC) 5 mg tabletIndications :hypertension Take 1 tablet (5 mg total) by mouth lehr operator before breakfast 4 Active cyanocobalamin/fo lic acid (vitamin J17-vfjfl acid) 500-400 mcg tabletIndications :Vitamin Deficiency Prevention [...] Neg Hx Relation Name Status Comments Brother ND age 60s Father Mother Social History Tobacco [...] on file Legal Sex Female 2:59 AM ORGANISATIONAL PSYCHOLOGIST Gender Identity Not on file Sexual Orientation [...] 10:15 AM CDT Height 160 cm (5' 3) 07/10/2024 10:15 AM CDT Body Mass Index 26.75 07/10/2024 10:15 AM CDT Plan of Treatment Health Maintenance Due Date Last Done Comments Depression Screening 1940 Osteoporosis Screening-Bone Density Scan 1940 DTaP/Tdap/Td Vaccine (1 - Tdap) 1952 Pneumococcal vaccine 65+ (1 of 1 - PCV) 07/31/1991 Zoster Vaccine (1 of 2) 07/31/1991 Well Visit 65+ 2006 Covid-19 Vaccine (3 - Pfizer risk series) 07/27/2020 06/29/2020, 06/08/2020 Fall Risk Assessment 10/09/2024 10/10/2023 Influenza Vaccine (#1) 2024 01/29/2020 Hepatitis B Screening Completed 01/14/2021 , 08/16/2020, 07/15/2020 Medical Devices Implanted Type Area Information Security Specialist Device Identifier Shelf Expiration Date Model / Serial / Lot [employer] Ultrapro Advanced 15x7.6cm Partial Absorbable Lightweight [id number] - Sna - [id number] Implanted:Qty: 1 on 10/10/2023 by Crystal Raza MD at [facility] Medicine Mesh Left: Groin [employer] [id number] 04/08/2025 [id number] / NA / [id number] Insurance MEDICARE [email or web address] MEDICARE FOR LIFE MEDICARE FOR LIFE Care Teams Cloud Infrastructure Architect Relationship Specialty Start Date End Date Leanne Espinosa MD [facility] [address] [address] PCP - General Family Practice 05/05/24 Paola Banks MD [address] [place] [address] Referring Physician Gastroenterology 10/04/23
[2024-12-10 18:42] LABS: Alanine Aminotransferase 92 U/L (6-35); Albumin Level 4.7 g/dL (3.5-5.1); Alkaline Phosphatase 98 U/L (38-126); Anion Gap 8 mmol/L (4-12); Aspartate Amino Transferase 116 U/L (14-36); Bilirubin,Total 0.6 mg/dL (0.2-1.3); Blood Urea Nitrogen 11 mg/dL (7-17); Calcium 9.8 mg/dL (8.4-10.2); Carbon Dioxide 29 mmol/L (22-30); Chloride 101 mmol/L (98-107); Estimated Glomerular Filt Rate > 60; Glucose 101 mg/dL (65-110); Potassium 4.6 mmol/L (3.4-5.0); Sodium 138 mmol/L (137-145); Total Protein 8.3 g/dL (6.3-8.2)
== END 2024-12-10 15:20 | disposition home or self-care (01) ==
PROVIDERS: PCP Family Medicine; Visit Provider Family Medicine
DX: E55.9 Vitamin D deficiency, unspecified (principal); I10 Essential (primary) hypertension
CPT/HCPCS: 36415; 80053; 82306